=== PATIENT | female | born 2000 | race Caucasian/White ===

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

== ENCOUNTER 2019-01-09 11:10 | Emergency (ER) | payer OTHER ==
[2019-01-09 11:50] LABS: ABSOLUTE LYMPHOCYTES (AUTO) 1.9 10^3/uL (0.5-4.7); ABSOLUTE MONOCYTES (AUTO) 0.5 10^3/uL (0.1-1.4); ABSOLUTE NEUT (AUTO) 3.1 10^3/uL (1.7-8.2); BASOPHILS % (AUTO) 0.5 % (0-2); EOSINOPHILS % (AUTO) 0.6 % (0-6); HEMATOCRIT 40.3 % (36.0-47.0); HEMOGLOBIN 13.9 g/dL (12.0-15.5); LYMPHOCYTES % (AUTO) 34.1 % (13-45); MEAN CORPUSCULAR HEMOGLOBIN 30.1 pg (27.0-33.4); MEAN CORPUSCULAR HGB CONC 34.4 g/dL (32.0-36.0); MEAN CORPUSCULAR VOLUME 88 fl (80-97); MONOCYTES % (AUTO) 9.5 % (3-13); PLATELET COUNT 195 10^3/uL (150-450); RED BLOOD COUNT 4.61 10^6/uL (3.72-5.28); RED CELL DISTRIBUTION WIDTH 12.8 % (11.5-14.0); SEGMENTED NEUTROPHILS % (AUTO) 55.3 % (42-78); TOTAL CELLS COUNTED % (AUTO) 100 %; WHITE BLOOD COUNT 5.5 10^3/uL (4.0-10.5)
[2019-01-09 11:58] LABS: AMORPHOUS SEDIMENT,URINE TRACE /HPF; APPEARANCE,URINE SLIGHTLY-CLOUDY; BILIRUBIN,URINE NEGATIVE (NEGATIVE); COLOR,URINE YELLOW; GLUCOSE, URINE NEGATIVE (NEGATIVE); KETONES,URINE NEGATIVE (NEGATIVE); LEUKOCYTE ESTERASE,URINE NEGATIVE (NEGATIVE); NITRITE,URINE NEGATIVE (NEGATIVE); PROTEIN,URINE 30 mg/dL (NEGATIVE); URINE SPECIFIC GRAVITY 1.031
[2019-01-09] MEDS ORDERED: NORMAL SALINE 1000 ML 1,000 ML IV ONE (12:12)
--- NOTE | 2019-01-09 13:31 | RADIOLOGY REPORT (SQ) ---
EXAM DESCRIPTION: U/S NON OB PEL TV W/DOPPLER COMPLETED DATE/TIME: 01/09/2019 1:17 pm REASON FOR STUDY: +preg @ home with bleeding COMPARISON: None. TECHNIQUE: Dynamic and static grayscale images acquired of the pelvis via transvaginal approach and recorded on PACS. Additional selected color Doppler and spectral images recorded. LIMITATIONS: None. FINDINGS: UTERUS: Contour normal. No mass. ENDOMETRIAL STRIPE: No focal or generalized thickening. No masses. CERVIX: 3 cm. No nabothian cysts. RIGHT OVARY AND DOPPLER: Normal size. No worrisome masses. Normal arterial vascular flow without evid ence for torsion. LEFT OVARY AND DOPPLER: Normal size. No worrisome masses. Normal arterial vascular flow without evide nce for torsion. FREE FLUID: None noted. OTHER: No other significant finding. MEASUREMENTS: UTERUS: 7.4 x 4.2 x 3.3 cm. ENDOMETRIAL STRIPE: 6 mm. RIGHT OVARY: 3.4 x 2.4 x 2.2 cm. LEFT OVARY: 3.5 x 2.5 x 2.9 cm. IMPRESSION: NORMAL TRANSVAGINAL PELVIC ULTRASOUND. TECHNICAL DOCUMENTATION: JOB ID: [id number] [employer]- All Rights Reserved Rev-09/24 Reading location - IP/workstation name: [email or web address]
--- NOTE | 2019-01-09 15:38 | ER Document Report ---
ED General - General Chief Complaint: OB Problem (<20wks) Stated Complaint: BLEEDING WITH Time Seen by Provider: 01/09/19 11:24 Notes: Patient is a 18-year-old female G0 presents to the emergency department for vaginal bleeding. Patient states she typically has sporadic intermittently heavy periods. States she has not had a. In over 2-1/2 months which typically is her normal. States she did take an at home test approximately a week ago because her and her are attempting to conceive a baby. States she thinks she saw a faint positive and then made an appointment with her primary care provider. Patient has not followed up with primary care provider. States today she started with heavy vaginal bleeding. States she went through 2 super tampons in 1 hour which was concerning to her which is why she presents to the emergency department. Patient's denying any chest pain, shortness of breath, weakness, dizziness, lightheadedness. Patient is complaining of minor bilateral pelvic pain. Patient is denying any vaginal discharge prior to the bleeding that started today. Patient has no medical problems, takes no medications, is denying any allergies. TRAVEL OUTSIDE OF THE [place] IN LAST 30 DAYS: No - Related Data Allergies/Adverse Reactions: No Known Allergies Allergy (Verified 01/09/19 11:10) Past Medical History - General Information source: Patient - Social History Smoking Status: Never Smoker Chew tobacco use (# tins/day): No Frequency of alcohol use: None Drug Abuse: None Family History: Reviewed & Not Pertinent Patient has suicidal ideation: No Patient has homicidal ideation: No Renal/ Medical History: Denies: Hx Peritoneal Dialysis - Immunizations Immunizations up to date: Yes Review of Systems - Review of Systems Constitutional: denies: Fever EENT: No symptoms reported Cardiovascular: No symptoms reported Respiratory: No symptoms reported Gastrointestinal: See HPI - . Genitourinary: See HPI Female Genitourinary: See HPI Musculoskeletal: No symptoms reported Skin: No symptoms reported Hematologic/Lymphatic: No symptoms reported Neurological/Psychological: No symptoms reported Physical Exam - Vital signs Vitals: Temp Pulse Resp BP Pulse Ox 98.3 F 75 16 118/71 99 01/09/19 11:16 01/09/19 11:16 01/09/19 11:16 01/09/19 11:16 01/09/19 11:16 - Notes Notes: GENERAL: Alert, interacts well. No acute distress. HEAD: Normocephalic, atraumatic. EYES: Pupils equal, round, and reactive to light. Extraocular movements intact. ENT: Oral mucosa moist, tongue midline. NECK: Full range of motion. Supple. Trachea midline. LUNGS: Clear to auscultation bilaterally, no wheezes, rales, or rhonchi. No respiratory distress. HEART: Regular rate and rhythm. No murmur ABDOMEN: Soft,. Non-distended. Bowel sounds present in all 4 quadrants. No McBurney's point tenderness, no Le sign noted. Slight suprapubic tenderness noted. EXTREMITIES: Moves all 4 extremities spontaneously. No edema, normal radial and dorsalis pedis pulses bilaterally. No cyanosis. BACK: no cervical, thoracic, lumbar midline tenderness. No saddle anesthesia, normal distal neurovascular exam. No CVA tenderness noted bilaterally. NEUROLOGICAL: Alert and oriented x3. Normal speech. cranial nerves II through XII grossly intact PSYCH: Normal affect, normal mood. SKIN: Warm, dry, normal turgor. No rashes or lesions noted. Course - Re-evaluation Re-evalutation: Laboratory 01/09/19 01/09/19 01/09/19 11:42 11:42 11:42 WBC 5.5 RBC 4.61 Hgb 13.9 Hct 40.3 MCV 88 MCH 30.1 MCHC 34.4 RDW 12.8 Plt Count 195 Lymph % (Auto) 34.1 Dickenson % (Auto) 9.5 Eos % (Auto) 0.6 Baso % (Auto) 0.5 Absolute Neuts (auto) 3.1 Absolute Lymphs (auto) 1.9 Absolute Monos (auto) 0.5 Absolute Eos (auto) 0.0 Absolute Basos (auto) 0.0 Seg Neutrophils % 55.3 Serum HCG, Qual NEGATIVE Urine Color YELLOW Urine Appearance SLIGHTLY-CLOUDY Urine pH 6.0 Ur Specific [place] 1.031 Urine Protein 30 H Urine Glucose (UA) NEGATIVE Urine Ketones NEGATIVE Urine Blood LARGE H Urine Nitrite NEGATIVE Urine Bilirubin NEGATIVE Urine Urobilinogen 2.0 H Ur Leukocyte Esterase NEGATIVE Urine RBC (Auto) 13 Urine Bacteria (Auto) TRACE Squamous Epi Cells Auto 3 Amorphous Sediment Auto TRACE Urine Mucus (Auto) MANY Urine Ascorbic Acid NEGATIVE Transvaginal US 01/09/19 11:24 IMPRESSION: NORMAL TRANSVAGINAL PELVIC ULTRASOUND. Patient's labs showed no signs of anemia, hCG negative, transvaginal ultrasound was normal. Specific gravity in urine noted to be 1.031, treated for dehydration in the emergency department. Discussed with patient this is likely the start of her menses. While patient was in the emergency department patient states she has had a one pad which has a scant amount of blood on it and has been here for 4 hours. At this time will discharge with return precautions and follow-up recommendations. Verbal discharge instructions given a the bedside and opportunity for questions given. Medication warnings reviewed. Patient is in agreement with this plan and has verbalized understanding of return precautions and the need for primary care follow-up in the next 24-72 hours. This medical record was dictated with voice recognizing software. There may be grammatical, syntax errors that are unintended. - Vital Signs Vital signs: Temp Pulse Resp BP Pulse Ox 98.6 F 62 16 109/60 99 01/09/19 15:37 01/09/19 15:37 01/09/19 15:37 01/09/19 15:37 01/09/19 15:37 - Laboratory Result Diagrams: 01/09/19 11:42 Laboratory results interpreted by me: 01/09/19 11:42 Urine Protein 30 H Urine Blood LARGE H Urine Urobilinogen 2.0 H Discharge - Discharge Clinical Impression: Vaginal bleeding Condition: Stable Disposition: HOME, SELF-CARE Instructions: Vaginal Bleeding ([facility]) Additional Instructions: As we discussed you have been seen and treated in the emergency department for vaginal bleeding. Please make sure you follow-up with your primary care henrietta harley and MANIFEST CLERK. Please also make sure you return to the emergency department should you have continued heavy vaginal bleeding, shortness of breath, lightheadedness, weakness or pass out. Forms: Return to Work
[2019-01-09 15:39] VITALS: BP 109/60
== END 2019-01-09 15:39 | disposition home or self-care (01) ==
LOC: ER 11:10
DX: N93.9 Abnormal uterine and vaginal bleeding, unspecified (principal); R10.2 Pelvic and perineal pain
CPT/HCPCS: 99284; 96360; 36415; 87086; 84703; 85025; 81001; 76830; 93976; J7030